=== PATIENT | male | born 1965 | race Caucasian/White ===

== ENCOUNTER 2020-07-09 16:40 | Emergency (ER) | payer BC ==
[~2020-07-09] VITALS: Ht 180.3 cm; Wt 102.2 kg
[2020-07-09] MEDS ORDERED: KETOROLAC 60 MG/2 ML VIAL. IM ONE (17:15)
[2020-07-09] MEDS ORDERED: DIPH,PERTUSS(ACELL),TET VAC/PF 0.5 ML SYRINGE. VAX IM ONE (17:15)
[2020-07-09] MEDS ORDERED: KETOROLAC 30 MG/ML VIAL. ONE (17:19)
--- NOTE | 2020-07-09 18:28 | RAD ---
Exam: Left finger 3 views INDICATION: Blunt injury to distal fourth digit/pain TECHNIQUE: Frontal, lateral and oblique views of the fourth digit Comparisons: None FINDINGS: There is a mildly displaced fracture to the tuft of the fourth digit. Bone mineralization is normal. No other fractures are identified. Soft tissues are unremarkable. Joint spaces are well-maintained. IMPRESSION: Mildly displaced fracture of the tuft of the fourth digit. Electronically signed by: Ally Torrez MD (07/09/2020 6:25 PM) [facility]
[2020-07-09] MEDS ORDERED: LIDOCAINE 2% 20 ML VIAL. IJ ONE (18:45)
[2020-07-09] MEDS ORDERED: NEOMY/BACITR/POLYMYXIN OINT PACKET. TP ONE (19:24)
[2020-07-09] MEDS ORDERED: HYDR-2155 PO (19:30)
[2020-07-09] MEDS ORDERED: CEPH500T PO (19:30)
[2020-07-09] MEDS ORDERED: BACITRACIN ZINC TOPICAL OINT PACKET. TP ONE (19:30)
--- NOTE | 2020-07-09 19:30 | PHYS DOC ---
Past History Past Medical History: Hypertension (MILEY JACKSON APRN) Past Surgical History: No Surgical History (MILEY JACKSON APRN) Alcohol Use: None (MILEY JACKSON APRN) Adult General Chief Complaint Chief Complaint: FINGER INJURY HPI HPI Patient is a 54-year-old male presents to the emergency department complaining of pinching his left finger between a large piece of wood and a bobcat front bucket. Patient states that it split his ring finger open at the distal tip. Patient fears he may have broken his finger. Patient states that he almost pass ed out because of the pain. Patient reports his pain an 8/10 on a 1-10 scale. Patient states his last tetanus shot was greater than 5 years ago. Patient denies any other physical complaints or physical injuries. Patient denies chest pain, shortness of breath, dizziness, headaches, aches or pains to any other part of his body. Patient states that he currently takes lisinopril and hydrochlorothiazide for high blood pressure, states that he had thumb surgery with a hand surgeon earlier this year related to another injury. Patient denies any other surgical history. Patient denies any allergies to medications (MILEY JACKSON APRN) Review of Systems Review of Systems 14 body systems of review of systems have been reviewed. See HPI for pertinent positives and negative responses, otherwise all other systems are negative, nonpertinent or noncontributory. (MILEY JACKSON APRN) Current Medications Current Medications Current Medications Medications (Trade) Dose Ordered Sig/Mine Start Time Stop Time Status Last Admin Dose Admin Bacitracin (Bacitracin Topical Pkt) 1 pkt 1X ONCE 07/09/20 19:30 07/09/20 19:31 UNV Diphtheria/ Pertussis/Tetanus Vacc (ADACEL TDap SYRINGE) 0.5 ml ONCE ONCE 07/09/20 17:15 07/09/20 17:21 DC 07/09/20 17:23 0.5 ML Ketorolac Tromethamine (Toradol 30mg Vial) 30 mg STK-MED ONCE 07/09/20 17:19 07/09/20 17:19 DC Ketorolac Tromethamine (Toradol Im) 60 mg 1X ONCE 07/09/20 17:15 07/09/20 17:21 DC 07/09/20 17:25 60 MG Lidocaine HCl 20 ml 1X ONCE 07/09/20 18:45 07/09/20 18:50 DC (MILEY JACKSON APRN) Allergies Allergies Allergies Coded Allergies Type Severity Reaction Last Updated Verified No Known Drug Allergies 07/09/20 No (MILEY JACKSON APRN) Physical Exam Physical Exam Constitutional: Well developed, well nourished, no acute distress, non-toxic appearance. [] HENT: Normocephalic, atraumatic, bilateral external ears normal, oropharynx moist, no oral exudates, nose normal. [] Eyes: PERRLA, EOMI, conjunctiva normal, no discharge. [] Neck: Normal range of motion, no tenderness, supple, no stridor. [] Cardiovascular:Heart rate regular rhythm, no murmur [] Lungs & Thorax: Bilateral breath sounds clear to auscultation [] Abdomen: Bowel sounds normal, soft, no tenderness, no masses, no pulsatile masses. [] Skin: Warm, dry, no erythema, no rash. [] Back: No tenderness, no CVA tenderness. [] Extremities: No tenderness, no cyanosis, no clubbing, ROM intact, no edema. [] Neurologic: Alert and oriented X 3, normal motor function, normal sensory function, no focal deficits noted. [] Psychologic: Affect normal, judgement normal, mood normal. [] (MILEY JACKSON APRN) Current Patient Data Vital Signs Vital Signs Date Time Temp Pulse Resp B/P (MAP) Pulse Ox O2 Delivery O2 Flow Rate FiO2 07/09/20 16:57 97.7 83 20 121/75 (90) 97 Room Air (MILEY JACKSON APRN) EKG EKG [] (MILEY JACKSON APRN) Radiology/Procedures Radiology/Procedures []PATIENT: RIANA JACKSONOUNT: [id number]#: [id number] : 1965 LOCATION: ER AGE: 54 SEX: M EXAM STATUS: REG ER ORD. PHYSICIAN: JASKARAN PAULINO DO REASON: Blunt injury to distal 4th digit/pain with laceration PROCEDURE: FINGER(S) LEFT Exam: Left finger 3 views INDICATION: Blunt injury to distal fourth digit/pain TECHNIQUE: Frontal, lateral and oblique views of the fourth digit Comparisons: None FINDINGS: There is a mildly displaced fracture to the tuft of the fourth digit. Bone mineralization is normal. No other fractures are identified. Soft tissues are unremarkable. Joint spaces are well-maintained. IMPRESSION: Mildly displaced fracture of the tuft of the fourth digit. Electronically signed by: Ally Theodore MD (07/09/2020 6:25 PM) [facility] DICTATED AND SIGNED BY: ALLY THEODORE MD DATE: 07/09/201823 CC: MILEY JACKSON APRN; RENE MCGREGOR MD; JASKARAN PAULINO DO ~MTH0 0 (MILEY JACKSON APRN) Heart Score C/O Chest Pain: No Risk Factors: Risk Factors: DM, Current or recent (<one month) smoker, HTN, HLP, family history of CAD, obesity. Risk Scores: Risk Factors: DM, Current or recent (<one month) smoker, HTN, HLP, family history of CAD, obesity. (MILEY JACKSON APRN) Course & Med Decision Making Course & Med Decision Making Pertinent Labs and Imaging studies reviewed. (See chart for details) 54-year-old male, vital signs reviewed, presents emergency department concerning of left ring finger injury he sustained while splitting wood today approximately 1-1/2 hours prior to arrival to the ER. Patient is physical examination concerning for possible fracture, there was a laceration that needs repaired. An x-ray was ordered. The patient's tetanus status was brought up-to-date today in the emergency department. X-ray read by house radiologist showed tuft fracture of the distal ring finger left hand. Discussed findings with patient. Discussed that this is possibly an open fracture related to the laceration at the distal tip and that he needs strict follow-up with a hand surgeon or orthopedic surgery. Patient states she has a good relationship with a hand surgeon that repaired his thumb and 2020. Patient states he will call him tomorrow for an appointment. Patient's laceration was repaired, see laceration repair note. Patient was placed in splint by ED nursing staff. Patient gave verbal understanding of laceration care, strict follow-up with hand surgeon or orthopedic surgeon tomorrow, return to emergency department precautions and concerns, will start prophylactically on Keflex. Patient was discharged home without incident. (MILEY JACKSON APRN) Course & Med Decision Making Did not see or evaluate patient. Agree with DECKER OPERATOR's work-up and disposition per note. (SHANNAN FARFAN MD) Dragon Disclaimer Dragon Disclaimer This electronic medical record was generated, in whole or in part, using a voice recognition dictation system. (MILEY JACKSON APRN) Departure Departure: Impression: Primary Impression: Open fracture of tuft of distal phalanx of finger Additional Impressions: Subungual hematoma of digit of hand Laceration of finger of left hand Disposition: 01 DC HOME SELF CARE/HOMELESS Condition: GOOD Referrals: RENE MCGREGOR MD (PCP) Patient Instructions: Finger Fracture, Splint Care, [id number], Sutured Wound Care Additional Instructions: Take antibiotic as prescribed, follow-up with your hand surgeon this week regarding your finger fracture, return to the emergency department for worsening symptoms or other concerns, have your stitches taken out in 10 to 12 days. EMERGENCY DEPARTMENT GENERAL DISCHARGE INSTRUCTIONS Thank you for coming to [facility] (ED) today and trusting us with you care. We trust that you had a positivie experience in our Emergency Department. If you wish to speak to the department management, you may call the director at [phone]. YOUR FOLLOW UP INSTRUCTIONS ARE FOLLOWS: 1. Do you have a private Doctor? If you do not have a private doctor, please ask for a resource list of physicians or clinics that may be able to assist you with follow up care. 2. The Emergency Physician has interpreted your x-rays. The X-Ray specialist will also review them. If there is a change in the findings, you will be notified in 48 hours when at all possible. 3. A lab test or culture has been done, your results will be reviewed and you will be notified if you need a change in treatment. ADDITIONAL INSTRUCTIONS AND INFORMATION: 1. Your care today has been supervised by a physician who is specially trained in emergency care. Many problems require more than one evaluation for a complete diagnosis and treatment. We recommend that you schedule your follow up appointment as recommended to ensure complete treatment of you illness or injury. If you are unable to obtain follow up care and continue to have a problem, or if your condition worsens, we recommend that you return to the ED. 2. We are not able to safely determine your condition over the phone nor are we able to give sound medical advice over the phone. For these safety reasons, if you call for medical advice we will ask you to come to the ED for further evaluation. 3. If you have any questions regarding these discharge instructions please call the ED at [phone]. SAFETY INFORMATION: In the interest of safety, wellness, and injury prevention; we encourage you to wear your sealbelt, if you smoke; quite smoking, and we encourage family to use a protective helmet for bicycling and other sporting events that present an increased risk for head injury. IF YOUR SYMPTOMS WORSEN OR NEW SYMPTOMS DEVELOP, OR YOU HAVE CONCERNS ABOUT YOUR CONDITION; OR IF YOUR CONDITION WORSENS WHILE YOU ARE WAITING FOR YOUR FOLLOW UP APPOINTMENT; EITHER CONTACT YOUR PRIMARY CARE DOCTOR, THE PHYSICIAN WHOSE NAME AND NUMBER YOU WERE GIVEN, OR RETURN TO THE ED IMMEDIATELY. Scripts Hydrocodone Bit/Acetaminophen (HYDROCODONE-APAP 5-325 ) 1 Each Tablet 1 TAB PO PRN Q6HRS PRN for PAIN, #6 TAB 0 Refills Prov: MILEY JACKSON APRN 07/09/20 Cephalexin (CEPHALEXIN) 500 Mg Tablet 1 TAB PO TID for FINGER FRACTURE, #30 TAB 0 Refills Prov: MILEY JACKSON APRN 07/09/20 Laceration Repair Lac Repair Indication: [] Laceration left ring fingertip. Procedure: The patient was placed in the appropriate position and anesthesia around the laceration was achieved with 4 cc 2% lidocaine without epinephrine digital block of the left ring finger. The area was then vigorously cleansed and scrubbed with chlorhexidine scrub brush, vigorously irrigated with 500 cc pressurized normal saline.. The laceration was repaired with 7 interrupted sutures using 4-0 nylon. The laceration was dressed with bacitracin, a frog splint was placed by ED nursing staff. Total repaired wound length: 1 cm The patient tolerated the procedure well. Complications: There were no complications. (MILEY JACKSON APRN) Problem Qualifiers Additional Impressions: Subungual hematoma of digit of hand Encounter type: initial encounter Qualified Codes: S60.10XA - Contusion of unspecified finger with damage to nail, initial encounter Laceration of finger of left hand Encounter type: initial encounter Finger: ring finger Damage to nail stat us: without damage Foreign body presence: without foreign body Qualified Codes: S61.215A - Laceration without foreign body of left ring finger without damage to nail, initial encounter MILEY JACKSON APRN Jul 09, 2020 19:30 SHANNAN FARFAN MD Jul 12, 2020 18:13
[2020-07-09 19:35] VITALS: BP 118/70
== END 2020-07-09 19:42 | disposition home or self-care (01) ==
LOC: ER 16:40
DX: S62.635B Displaced fracture of distal phalanx of left ring finger, initial encounter for open fracture (principal); S60.10XA Contusion of unspecified finger with damage to nail, initial encounter; I10 Essential (primary) hypertension; W23.0XXA Caught, crushed, jammed, or pinched between moving objects, initial encounter; Y93.89 Activity, other specified; Y92.89 Other specified places as the place of occurrence of the external cause; Y99.8 Other external cause status
CPT/HCPCS: 29125; 73140; 90471; 90715; 96372; 99284; J1885; J2001

== ENCOUNTER 2021-04-22 01:46 | Emergency (ER) | payer BC ==
[~2021-04-22] VITALS: Ht 180.3 cm; Wt 96.5 kg
[~2021-04-22 01:46] MED LIST: CEPH500T PO; HYDR-2155 PO
[2021-04-22 01:57] VITALS: BP 109/71
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
--- NOTE | 2021-04-22 02:28 | EKG ---
[address] [address] Test Date: 2021-04-22 Test Time: 02:23:19 Pat Name: RIANA JACKSON Department: Room: Gender: M Cause Analyst: : 1965 Requested By: KYLE KRUEGER Order Number: [id number] Reading MD: Measurements Intervals [place] Rate: 65 P: ID: QRS: 47 QRSD: 90 T: 48 QT: 392 QTc: 413 Interpretive Statements IRREGULAR RHYTHM, NO P-WAVE FOUND OTHERWISE NORMAL ECG RI6.02 No previous ECG available for comparison
[2021-04-22] MEDS ORDERED: IV RINGERS SOLUTION,LACTATED 1,000 ML IV SCH (02:30)
[2021-04-22] MEDS ORDERED: MORPHINE SULFATE 10 MG/ML SYRINGE. SQ ONE (02:30)
[2021-04-22] MEDS ORDERED: DIPH,PERTUSS(ACELL),TET VAC/PF 0.5 ML SYRINGE. VAX IM ONE (02:30)
[2021-04-22 03:55] LABS: BASO % 1 % (0-3); EOS # 0.1 x10^3/uL (0.0-0.7); EOS % 1 % (0-3); HEMATOCRIT 45.2 % (39.0-53.0); HEMOGLOBIN 15.4 g/dL (13.0-17.5); LYMPH # 1.8 x10^3/uL (1.0-4.8); LYMPH % 32 % (24-48); MEAN CORPUSCULAR HEMOGLOBIN 32 pg (25-35); MEAN CORPUSCULAR HGB CONC 34 g/dL (31-37); MEAN CORPUSCULAR VOLUME 94 fL (79-100); MONO # 0.5 x10^3/uL (0.0-1.1); MONO % 9 % (0-9); NEUT # 3.2 x10^3uL (1.8-7.7); NEUT % 57 % (31-73); PLATELET COUNT 241 x10^3/uL (140-400); RED CELL DISTRIBUTION WIDTH 13.5 % (11.5-14.5); WHITE BLOOD COUNT 5.6 x10^3/uL (4.0-11.0)
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
[2021-04-22 04:18] LABS: CALCIUM 8.4 mg/dL (8.5-10.1); CREATININE 0.6 mg/dL (0.7-1.3); GFR 140.9; POTASSIUM 3.9 mmol/L (3.5-5.1)
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
[2021-04-22 04:31] LABS: ALBUMIN 3.7 g/dL (3.4-5.0); DIRECT BILIRUBIN 0.2 mg/dL (0.0-0.2); MAGNESIUM 2.2 mg/dL (1.8-2.4); TOTAL BILIRUBIN 0.4 mg/dL (0.2-1.0); TOTAL PROTEIN 6.6 g/dL (6.4-8.2)
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
== END 2021-04-22 04:45 | disposition home or self-care (01) ==
LOC: ER 01:46
DX: S63.91XA Sprain of unspecified part of right wrist and hand, initial encounter (principal); S70.02XA Contusion of left hip, initial encounter; I10 Essential (primary) hypertension; F10.129 Alcohol abuse with intoxication, unspecified; Y90.8 Blood alcohol level of 240 mg/100 ml or more; Y03.0XXA Assault by being hit or run over by motor vehicle, initial encounter; Y93.89 Activity, other specified; Y92.89 Other specified places as the place of occurrence of the external cause; Y99.8 Other external cause status
CPT/HCPCS: 36415; 71045; 72131; 72192; 73130; 73552; 80048; 80076; 82550; 83690; 83735; 83880; 84443; 84484; 85025; 85610; 85730; 93005; 96360; 96372; 99285; G0480; J2270; J7120